=== PATIENT | male | born 1995 | race Caucasian/White ===

== ENCOUNTER 2023-08-23 20:20 | Emergency (ER) | payer SELFPAY ==
[2023-08-23 20:32] VITALS: BP 156/98; PULSE 89
[2023-08-23] MEDS ORDERED: Diphtheria,Pertussis(Acell),Tetanus Vaccine 0.5 ML Syringe IM ONE (21:44)
== END 2023-08-23 21:55 | disposition home or self-care (01) ==
LOC: JD.ED 20:20
DX: S61.001A Unspecified open wound of right thumb without damage to nail, initial encounter (principal); Z23 Encounter for immunization; W27.4XXA Contact with kitchen utensil, initial encounter
CPT/HCPCS: 90471; 99282; 99282-25